=== PATIENT | female | born 1960 | race Caucasian/White ===

== ENCOUNTER 2017-06-26 14:31 | Emergency (ER) | payer OTHER ==
[~2017-06-26] VITALS: Ht 152.4 cm; Wt 65.8 kg
[~2017-06-26 14:31] MED LIST: ALEVE220 MG PO; CELEXA20 MG PO; CHANTIX1 MG PO; CLONAZEPAM0.5 MG PO; DAILY VITAMIN1 EAC2 PO; DICLOFENAC SODI50 MG PO; ESTROVEN MOOD400 MCG PO; FERROUS SULFAT325 MG PO; HYDROCODON-ACE1 EA11 PO; HYDROCODON-ACE1 EAC8 PO; MEDROL4 M1 PO; MELATONIN3 MG PO; NEXIUM20 MG PO; NORCO 5-325 TA1 EACH PO; TRAZODONE HCL50 MG PO; VITAMIN B COMP1 EACH PO; VITAMIN D1000 UNI1 PO
[2017-06-26] MEDS ORDERED: PRILOSEC OTC20 MG PO (14:58)
[2017-06-26] MEDS ORDERED: IBUPROFEN800 MG PO (14:59)
[2017-06-26] MEDS ORDERED: CYCLOBENZAPRINE10 MG PO (14:59)
[2017-06-26] MEDS ORDERED: AMITRIPTYLINE H25 MG PO (15:00)
== END 2017-06-26 16:10 | disposition home or self-care (01) ==
LOC: ED 14:31
DX: S93.602A Unspecified sprain of left foot, initial encounter (principal); S20.212A Contusion of left front wall of thorax, initial encounter; F17.200 Nicotine dependence, unspecified, uncomplicated; Z90.710 Acquired absence of both cervix and uterus; Z98.890 Other specified postprocedural states; E89.0 Postprocedural hypothyroidism; Z88.0 Allergy status to penicillin; Z88.2 Allergy status to sulfonamides; W10.9XXA Fall (on) (from) unspecified stairs and steps, initial encounter
CPT/HCPCS: 71101; 73630; 99283